=== PATIENT | male | born 1985 ===

== ENCOUNTER 2022-06-25 20:47 | Emergency (ER) | payer SELFPAY ==
--- NOTE | 2022-06-25 21:00 | DI.RAD_ITS ---
Exam(s) XR PORTABLE CHEST AP EXAM: XR PORTABLE CHEST AP CLINICAL HISTORY: fever, chills, r/o pneuomina TECHNIQUE: 2D digital imaging was performed. COMPARISON: No exams were available for comparison FINDINGS: Exam is limited by patient positioning and poor pulmonary inflation. LUNGS: Grossly clear. No pleural abnormality seen. HEART: Normal. AORTA: Normal. BONES: Unremarkable for age. Soft tissues: Unremarkable. IMPRESSION: Limited exam. No acute findings. DATA REPOSITORY: RADIATION DOSE DELIVERED:
[2022-06-25 21:09] VITALS: BP 126/71; PULSE 86; RESP 16; TEMP 36.3; O2SAT 99
[2022-06-25 21:36] LABS: Lactate 1.6 mmol/L (0.6-1.4)
[2022-06-25] MEDS: cloNIDine 0.1 MG PATCH TD ×3 (21:45→23:00)
[2022-06-25] MEDS: Normal Saline 1,000 ML 1000 ML IV (21:45)
[2022-06-25] MEDS: Ketorolac 15 MG/ML VIAL IVP (21:45)
--- NOTE | 2022-06-25 22:00 | W.ED.GENAD ---
Discharge Plan Disposition Patient Disposition: HOME Condition: Good Discharge Details Clinical Impression: COVID-19, Opiate withdrawal Primary Care Provider: None,None ED Provider: Jose C Mascorro Home Meds and New Rx's Prescriptions: No Action gabapentin 600 mg Tablet 600 mg PO TID clonidine HCl 0.2 mg Tablet 0.2 mg PO DAILY Discharge Instructions Instructions: Narcotic Withdrawal (ED), COVID-19 (Coronavirus Disease 2019) (ED) Additional Instructions: At this time you have COVID-19. Additionally your symptoms are worsened and compounded by your narcotic withdrawal. Please leave the clonidine patches on for the time being. Please stay well-hydrated and take Tylenol and Motrin as needed for fever. Wear a mask at all times to prevent any transmission of your COVID. If you notice any worsening of your symptoms, or any new symptoms such as vomiting, diarrhea, fever, chills, shortness of breath, chest pain, numbness, weakness, or fainting , please return immediately to the emergency department for reevaluation. Please follow up with your primary care provider as soon as possible for reassessment and reevaluation. As always, it was a pleasure participating in your medical care today. Medical Decision Making 36-year-old male with a past medical history of IV drug use, including regular fentanyl use, who presents today for withdrawal symptoms. Patient states that he has been using a notable amount of fentanyl over the last few weeks, he does this via IV drugs, and does admit to using clean needles. He stopped 3 days ago, and was not feeling well at all after doing this,. Because of that he took Suboxone off the street. He states that this made the symptoms even worse. Came to the ER for further evaluation. He admits to chills, fever likes symptoms, congestion. He is concerned that he might also have COVID. He denies any other drug use. He denies any cough or neck pain or urinary complaints. Physical exam demonstrates a thin pale male, no acute distress. Vital signs are stable. He is afebrile. Differential is highest for withdrawal, but also includes bacteremia, COVID, pneumonia or UTI. We will evaluate for these, we will rehydrate, will give clonidine, Tylenol, Toradol, monitor closely and reassess. 11:02 PM Laboratory work-up has returned and is stable, mild white count, hemoglobin slightly low but he denies any bleeding. Mild left shift, no lymphopenia. Lactate is only 1.6, electrolytes stable, BUN 21 suggesting mild dehydration, thyroid function normal, alcohol negative, Lyme panel pending, COVID is positive, RSV and influenza negative. Vital signs remained notably stable. Chest x-ray negative for pneumonia. Symptoms appear consistent with mild withdrawal compounded by COVID-19. Patient stable for outpatient discharge ago. At this time the patient does not have any home to go to, nor does he have any ride. He would not be appropriate for discharge to the [facility] secondary to his COVID status. We will keep him here in the ER this evening for sleep in the negative pressure room.. I have extensively reviewed the treatment plan and discharge instructions with the patient. I have addressed all patient concerns at this time. The patient was made aware of what symptoms to monitor for that would warrant a return to the emergency department. Discussed the plan with the patient, they demonstrate verbal understanding and agreement with our assessment and plan at this time. The documentation in this chart was dictated using [employer] dictation software. Please excuse any dictation errors. FINDINGS: Tubes, catheters and devices: Monitoring leads overlie the chest. Lungs: Unremarkable. No consolidation. Pleural spaces: Unremarkable. No pleural effusion. No pneumothorax. Heart/Mediastinum: Unremarkable. No cardiomegaly. Bones/joints: Unremarkable. IMPRESSION: No acute findings. Thank you for allowing us to participate in the care of your patient. Dictated and Authenticated by: Aryan Gonzalez MD 06/25/2022 10:05 PM Eastern Time ([place] & [place]) HPI General Date/Time Provider Initiated Documentation: 06/25/22 21:11. HPI Narrative: 36-year-old male with a past medical history of IV drug use, including regular fentanyl use, who presents today for withdrawal symptoms. Patient states that he has been using a notable amount of fentanyl over the last few weeks, he does this via IV drugs, and does admit to using clean needles. He stopped 3 days ago, and was not feeling well at all after doing this,. Because of that he took Suboxone off the street. He states that this made the symptoms even worse. Came to the ER for further evaluation. He admits to chills, fever likes symptoms, congestion. He is concerned that he might also have COVID. He denies any other drug use. He denies any cough or neck pain or urinary complaints. Related Data Home Medications Medication Instructions Recorded Confirmed clonidine HCl 0.2 mg tablet 0.2 mg PO DAILY 06/25/22 06/25/22 gabapentin 600 mg tablet 600 mg PO TID 06/25/22 06/25/22 Allergies Allergy/AdvReac Type Severity Reaction Status Date / Time erythromycin base Allergy Unverified 06/25/22 21:12 General Stated Complaint: DrugWithdr/MAT JESSIE: 2 Review of Systems All systems reviewed & are unremarkable except as noted in HPI and below PFSH All Active Problems (Updated 06/25/22 @ 23:07 by Jose C Mascorro DO) COVID-19 (Acute) Opiate withdrawal (Acute) Social History Smoking/Tobacco Use Status: Never Smoking risk assessment performed?: Yes Substance use type: opiates Exam Narrative Exam Narrative: 1.Const: Well-nourished, Well-developed, appearing stated age 2.Eyes: PERRL, no conjunctival injection, and symmetrical lids. 3.ENT: Atraumatic external nose and ears. Moist MM. Neck: Symmetric, trachea midline, No thyromegaly. Patient demonstrates good movement of cervical neck. There is no nuchal rigidity, no nuchal tenderness. Patient is able to flex the neck without any difficulty or significant pain. Negative Kernig's and Brudzinski sign. 4.CVS: +S1/S2, No murmurs or gallops. Peripheral pulses 2+ and equal in all extremities. Brisk capillary refill in all extremities. 5.RESP: Unlabored respiratory effort. Clear to auscultation bilaterally. No wheezes rales or rhonchi 6.GI: Soft, Nontender/Nondistended, No hepatosplenomegaly. No guarding or rebound. 7.MSK: Normocephalic/Atraumatic, Extremities w/o deformity or ttp No cyanosis or clubbing, Normal movement of all extremities 8.Skin: Warm, Dry. No rashes or lesions. 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 Sensation grossly intact, no focal neurologic deficits. 10.Psych: (AAO) x3. Appropriate mood and affect Course Vital Signs Vital signs: Vital Signs Temperature 36.3 C L 06/25/22 21:09 Pulse 86 06/25/22 21:09 Respiratory Rate 16 06/25/22 21:09 Blood Pressure 126/71 06/25/22 21:09 Pulse Oximetry 99 06/25/22 21:09 Temperature 36.3 C L 06/25/22 21:09 Temperature Source Temporal Artery Scan 06/25/22 21:09 Pulse 86 06/25/22 21:09 Respiratory Rate 16 06/25/22 21:09 Respiratory Effort 06/25/22 21:09 Blood Pressure 126/71 06/25/22 21:09 Blood Pressure Position Supine 06/25/22 21:09 Pulse Oximetry 99 06/25/22 21:09 Pain Level 5 06/25/22 21:09 Lab/Test Results Lab/Test Results: 06/25/22 21:22 Blood Blood Culture - Pending 06/25/22 21:24 Blood Blood Culture - Pending Laboratory Tests Range/Units 06/25/22 21:24 VBG Lactate (0.6-1.4) mmol/L 1.6 H
[2022-06-25 22:02] LABS: ALT 23 U/L (16-63); AST 19 U/L (15-37); Albumin 4.4 g/dL (3.4-5.0); Alkaline Phosphatase 130 U/L (46-116); Anion Gap 11.2 mmol/L (3-11); BUN 21 mg/dL (7-18); Bilirubin, Total 0.5 mg/dL (0.2-1.0); CO2 26.8 mmol/L (21.0-32.0); Chloride 102 mmol/L (98-107); Estimated GFR 100.03 (mL/min/1.73m2); Glucose 118 mg/dL (74-106); Potassium 3.9 mmol/L (3.5-5.1); Sodium 140 mmol/L (136-145); TSH (W/Ref FT4) 0.51 uIU/mL (0.36-3.74); Total Protein 8.9 g/dL (6.4-8.2)
[2022-06-25 22:03] LABS: ETHANOL BLOOD < 3.0 mg/dL (<10)
--- NOTE | 2022-06-25 22:06 | DI.VRAD_ITS ---
PROCEDURE INFORMATION: Exam: XR Chest Exam date and time: 06/25/2022 9:36 PM Age: 36 years old Clinical indication: Other: Fever, chills, R/O pneuomina TECHNIQUE: Imaging protocol: Radiologic exam of the chest. Views: 1 view. COMPARISON: No relevant prior studies available. FINDINGS: Tubes, catheters and devices: Monitoring leads overlie the chest. Lungs: Unremarkable. No consolidation. Pleural spaces: Unremarkable. No pleural effusion. No pneumothorax. Heart/Mediastinum: Unremarkable. No cardiomegaly. Bones/joints: Unremarkable. IMPRESSION: No acute findings. Dictated and Authenticated by: Aryan Gonzalez MD. Ordering:RICHARD Woodall MD
[2022-06-25 22:11] LABS: Influenza A PCR Negative (Negative); Influenza B PCR Negative (Negative); RSV PCR Negative (Negative)
[2022-06-25 22:13] LABS: COVID-19 PCR Positive (Negative); Source Nasopharynx
[2022-06-25 22:28] LABS: Abs Immature Grans 0.05 10^3/uL (0.0-0.06); Absolute Basophil Count 0.04 10^3/uL (0.0-0.2); Absolute Lymphocyte Count 2.05 10^3/uL (1.2-3.4); Absolute Monocyte Count 0.42 10^3/uL (0.1-0.8); Absolute Neutrophil Count 11.98 10^3/uL (1.2-6.7); Basophils % 0.3; Eosinophils % 0.1; HCT 27.6 % (40.0-50.0); HGB 8.2 g/dL (13.5-17.5); Immature Grans % 0.3; Lymphocytes % 14.1; MCH 19.6 pg (27.0-33.0); MCHC 29.7 % (32.0-36.0); MCV 66 fL (80-95); MPV 11.4 fL (8.0-11.0); Monocytes % 2.9; Neutrophils % 82.3; Platelet Count 298 10^3/uL (130-400); RBC 4.19 10^6/uL (4.36-5.78); RDW 15.9 % (11.8-14.1); WBC 14.56 10^3/uL (4.4-10.8)
[2022-06-25 22:29] LABS: Absolute Eosinophil Count 0.01 10^3/uL (0.0-0.7)
[2022-06-25 22:50] LABS: Anisocytosis 1+; Hypochromasia 2+; Microcytosis 1+
[2022-06-25 22:51] LABS: Poikilocytes 1+
[2022-06-25] MEDS: diphenhydrAMINE 50 MG/ML VIAL IVP (23:00)
[2022-06-25] MEDS: LORazepam 20 MG/10 ML VIAL IVP (23:01)
[2022-06-25] MEDS: Melatonin 3 MG TAB 6 MG PO (23:03)
[2022-06-25 23:45] VITALS: PULSE 65; RESP 20; O2SAT 96
[2022-06-27 10:06] LABS: Lyme Ab w Rflx to Lyme Confirm Negative (Negative)
--- NOTE | 2022-06-29 09:23 | NUR.NOTE ---
Nursing Note: Accessed patient chart to get the blood culture results to print, patient's address for provider.
--- NOTE | 2022-06-29 09:40 | W.ED.FU ---
Date of service: 06/29/22 Time of Service: 09:40 Follow Up Plan: I received blood culture results, staph in 1 bottle out of 4, likely contaminant. I attempted to contact the patient at 09 on 06-29; however, the patient's cell phone is not accepting phone calls. He has no additional contacts listed in the medical record. A note has been sent to his residence regarding his need to call the ER regarding abnormal laboratory values.
[2022-06-30 14:11] LABS: Anaplasma phagocytophilum Negative (Negative); B. miyamotoi PCR Negative (Negative); Babesia divergens/MO-1 Negative (Negative); Babesia duncani Negative (Negative); Babesia microti Negative (Negative); Ehrlichia chaffeensis Negative (Negative); Ehrlichia ewingii/canis Negative (Negative); Ehrlichia muris eauclairensis Negative (Negative)
== END 2022-06-25 23:44 | disposition home or self-care (01) ==
PROVIDERS: Emergency Provider Student in an Organized Health Care Education/Training Program
DX: F11.23 Opioid dependence with withdrawal (principal); U07.1 COVID-19
CPT/HCPCS: 36415; 80053; 87040; 87077; 87637; 87798; 96361; 96374; 96375; 99284; 71045; 80320; 83605; 84443; 85025; 86618; J1200; J1885; J3490

== ENCOUNTER 2023-02-03 20:40 | Emergency (ER) | payer SELFPAY ==
[2023-02-03 20:46] VITALS: BP 117/69; PULSE 109; RESP 16; TEMP 37.2; O2SAT 99
--- NOTE | 2023-02-03 21:04 | ED.GENADUL_ITS ---
Discharge Plan Disposition Patient Disposition: Home Discharge Details Clinical Impression: Abdominal pain in male, Constipation Primary Care Provider: None,None ED Provider: Autumn Currie Home Meds and New Rx's Prescriptions: No Action albuterol 90 mcg/actuation Aerosol INHALATION PRN PRN gabapentin 600 mg Tablet 600 mg PO TID clonidine HCl 0.2 mg Tablet 0.2 mg PO DAILY Discharge Instructions Instructions: Constipation (ED), Abdominal Pain (ED) Additional Instructions: Use Colace to help make your stools softer. Senokot or MiraLAX will help keep more regular. Call your PCP in [place], [place] on Monday to set up a recheck. They can ultrasound your abdomen to look further for hernias. Return to ED for fever 100.4 or above, pain localized to 1 area, protracted vomiting or diarrhea, any other concerns. Medical Decision Making Examined patient lying flat and standing up, having him perform Valsalva maneuvers and such. There is no evidence of a hernia or any other abnormality. He has no inguinal hernias no testicular tenderness. He is visiting from [facility] and I have advised him to call his doctor on Monday to order an abdominal ultrasound. He will return for fever of 100.4 or above, pain localized to 1 area, protracted vomiting or diarrhea, any other concerns. We also discussed his constipation and I gave him some recommendations. HPI General Date/Time Provider Initiated Documentation: 02/03/23 21:04 . HPI Narrative: This 37-year-old male patient from [facility] presents with a chief complaint of bumps in his right and left lower quadrant. The patient states he has a history of constipation dating back many years. He strains a lot when he is trying to poop. Says that after straining he felt like he has had some bumps. Does not have any definitive pain. There is no fever or chills. He is peeing normally. He has no groin, testicle, or scrotal pain. Related Data Home Medications Medication Instructions Recorded Confirmed clonidine HCl 0.2 mg tablet 0.2 mg PO DAILY 06/25/22 02/03/23 gabapentin 600 mg tablet 600 mg PO TID 06/25/22 02/03/23 albuterol 90 mcg/actuation aerosol inhalation PRN PRN 02/03/23 inhaler Allergies Allergy/AdvReac Type Severity Reaction Status Date / Time erythromycin base Allergy Unverified 02/03/23 21:17 General Stated Complaint: GenMedical JESSIE: 3 Review of Systems Constitutional Constitutional: Denies chills, Denies fever(s), Denies headache(s) and Denies weakness Eyes Eyes: Denies diplopia and Reports other (no redness) ENT Ears, Nose, Mouth, and Throat: Denies otalgia, Denies headache(s), Denies nasal congestion, Denies nasal discharge, Denies neck pain and Denies sore throat Cardiovascular Cardiovascular: Denies chest pain, Denies palpitations and Denies dyspnea Respiratory Respiratory: Denies cough and Denies dyspnea Gastrointestinal Gastrointestinal: Denies abdominal pain, Denies diarrhea, Denies nausea and Denies vomiting Genitourinary Genitourinary: Denies difficulty urinating and Denies dysuria Musculoskeletal Musculoskeletal: Denies myalgias, Denies muscle weakness, Denies neck pain, Denies numbness and Reports other (edema) Integumentary/Breasts Skin/Breast: Denies change in pigmentation and Denies rash Neurologic Neurologic: Denies headache(s), Denies numbness and Denies weakness Endocrine Endocrine: Denies palpitations PFSH All Active Problems COVID-19 (Acute) Abdominal pain in male (Acute) Constipation (Acute) Social History Smoking/Tobacco Use Status: Current every day Tobacco Type: cigarettes Smoking risk assessment performed?: Yes Drug use: Daily Substance use type: marijuana Do you feel safe at home: Yes Do you feel safe in your relationship?: Yes Exam Const General: no acute distress, well developed, well groomed and not in acute distress Nutritional Appearance: well nourished Orientation: alert and oriented x3 HENMT Head: normocephalic and atraumatic Ears: external ears normal Mouth: oropharynx normal and moist mucous membranes Throat: posterior oropharynx normal Eyes Conjunctivae: conjunctivae normal Neck Neck: full ROM and supple Chest Chest: normal inspection of the chest Resp Effort & Inspection: normal respiratory effort Auscultation: clear to auscultation bilaterally Cardio Rate: regular rate Rhythm: regular rhythm Heart Sounds: no murmurs and no rubs GI Inspection: normal to inspection Palpation: soft, nontender and other (non distended) Auscultation: normal bowel sounds Male General Exam: Yes normal external exam, No hernia and No inguinal lymphadenopathy Scrotum: scrotum normal Testes: normal, testicular lie normal and no testicular tenderness Skin General skin exam: no rashes or lesions noted and other (pink, warm, dry) Neuro General: patient alert, patient awake and patient oriented x3 Speech: speech normal Motor: other (WELCH) Sensory Exam: no sensory deficits noted Extrem General: normal to inspection, full ROM and pedal edema present Psych Mental Status: mental status grossly normal Speech and Movement: speech and movement normal Affect: normal affect Course Vital Signs Vital signs: Vital Signs Temperature 37.2 C 02/03/23 20:46 Pulse 109 H 02/03/23 20:46 Respiratory Rate 16 02/03/23 20:46 Blood Pressure 117/69 02/03/23 20:46 Pulse Oximetry 99 02/03/23 20:46 Temperature 37.2 C 02/03/23 20:46 Pulse 109 H 02/03/23 20:46 Respiratory Rate 16 02/03/23 20:46 Blood Pressure 117/69 02/03/23 20:46 Blood Pressure Position Sitting 02/03/23 20:46 Pulse Oximetry 99 02/03/23 20:46 Oxygen Delivery Method Room Air 02/03/23 20:46 Oxygen Flow Rate 0 02/03/23 20:46 Pain Level 5 02/03/23 20:46
[2023-02-03 21:10] VITALS: RESP 16
[2023-02-03 21:40] VITALS: PULSE 70; RESP 16; O2SAT 94
== END 2023-02-03 21:41 | disposition home or self-care (01) ==
PROVIDERS: Emergency Provider Emergency Medicine
DX: R10.9 Unspecified abdominal pain (principal); K59.00 Constipation, unspecified
CPT/HCPCS: 99281; 99282